=== PATIENT | female | born 1955 | race African-American/Black ===

== ENCOUNTER 2019-08-21 10:45 | Emergency (ER) | payer BC ==
[~2019-08-21] VITALS: Ht 162.6 cm; Wt 87.1 kg
[~2019-08-21 10:45] MED LIST: ASPIRIN EC81 M1 PO; BYSTOLIC10 MG PO; HYDRALAZINE 10M10 MG GT; LOMOTIL TABLET1 EACH PO; NORCO 5-325 TA1 EACH PO; NORVASC5 MG PO; ZOFRAN4 MG PO
[2019-08-21 11:33] LABS: ABSOLUTE NEUTROPHILS 4.7 thou/uL (1.4-8.2); BASOPHILS 0.6 % (0.0-2.0); HEMATOCRIT 40.9 % (37.0-47.0); HEMOGLOBIN 13.7 gm/dL (12.0-15.0); LYMPHOCYTES 22.4 % (24.0-44.0); MCHC 33.5 g/dL (28.0-37.0); MCV 92.6 fL (80.0-100.0); MONOCYTES 6.5 % (1.0-8.0); PLATELET COUNT 322 thou/uL (150-400); POLYS 69.5 % (36.0-66.0); RBC 4.41 mil/uL (4.20-5.00); WBC 6.8 thou/uL (4.0-11.0)
[2019-08-21 11:45] LABS: URINE BILIRUBIN NEGATIVE (Negative); URINE BLOOD 3+ (Negative); URINE CLARITY CLEAR; URINE COLOR YELLOW; URINE GLUCOSE-RANDOM* NEGATIVE (Negative); URINE KETONES NEGATIVE (Negative); URINE LEUKOCYTES NEGATIVE (Negative); URINE NITRITE NEGATIVE (Negative); URINE PROTEIN (DIPSTICK) TRACE (Negative); URINE SPECIFIC GRAVITY 1.015 (1.005-1.035); URINE UROBILINOGEN 0.2 E.U./dl (0.2-1.0)
[2019-08-21 11:55] LABS: CALCIUM 9.8 mg/dL (8.5-10.1); CREATININE 0.7 mg/dL (0.6-1.0); POTASSIUM 3.7 mmol/L (3.5-5.1)
[2019-08-21 11:59] LABS: CASTS None Seen /LPF (None Seen); SQUAMOUS None Seen /LPF (0-3); URINE WBC 0-5 Rare /HPF (0-5)
[2019-08-21 12:00] LABS: BACTERIA 1-9 Few /HPF (None Seen); CRYSTALS None Seen /LPF (None Seen)
[2019-08-21 12:01] LABS: ALBUMIN 4.2 g/dL (3.4-5.0); TOTAL BILIRUBIN 0.3 mg/dL (<0.1-1.0); TOTAL PROTEIN 8.2 g/dL (6.4-8.2)
[2019-08-21] MEDS ORDERED: ONDANSETRON HCL4 M2 PO (13:06)
[2019-08-21] MEDS ORDERED: FLOMAX0.4 MG PO (13:06)
[2019-08-21] MEDS ORDERED: NORCO 5-325 TA1 EAC1 PO (13:06)
[2019-08-21 13:14] VITALS: BP 147/70
== END 2019-08-21 13:15 | disposition home or self-care (01) ==
LOC: ER 10:45
PROVIDERS: Nurse Practitioner Family
DX: N20.0 Calculus of kidney (principal); I10 Essential (primary) hypertension; K21.9 Gastro-esophageal reflux disease without esophagitis; F17.210 Nicotine dependence, cigarettes, uncomplicated; Z88.8 Allergy status to other drugs, medicaments and biological substances

== ENCOUNTER → 2021-04-02 | Outpatient (CLI) | payer OTHER ==
[~2021-04-02] MED LIST changes: +FLOMAX0.4 MG PO; +NORCO 5-325 TA1 EAC1 PO; +ONDANSETRON HCL4 M2 PO
== END ==
LOC: LAB 08:18
PROVIDERS: ATTEND Student in an Organized Health Care Education/Training Program
DX: Z01.812 Encounter for preprocedural laboratory examination (principal); Z20.822 Contact with and (suspected) exposure to COVID-19

== ENCOUNTER → 2021-04-06 | Outpatient (CLI) | payer OTHER ==
[~2021-04-06] VITALS: Ht 162.6 cm; Wt 90.7 kg
[~2021-04-06] MED LIST changes: +ALBUTEROL2.5 MG/0.1 INH; +ANORO ELLIPTA1 EACH INH; +FAMOTIDINE20 MG PO; -HYDRALAZINE 10M10 MG GT; +HYDRALAZINE 10M10 MG PO
== END | disposition home or self-care (01) ==
LOC: GI
PROVIDERS: ATTEND Internal Medicine Gastroenterology
DX: R19.5 Other fecal abnormalities (principal); K57.30 Diverticulosis of large intestine without perforation or abscess without bleeding; K64.8 Other hemorrhoids; I10 Essential (primary) hypertension; J43.9 Emphysema, unspecified; K21.9 Gastro-esophageal reflux disease without esophagitis; F17.210 Nicotine dependence, cigarettes, uncomplicated; Z98.890 Other specified postprocedural states; Z79.899 Other long term (current) drug therapy; Z87.19 Personal history of other diseases of the digestive system; Z98.41 Cataract extraction status, right eye; Z98.42 Cataract extraction status, left eye; Z98.51 Tubal ligation status
CPT/HCPCS: 62110; 62900